=== PATIENT | female | born 1985 | race Caucasian/White ===

== ENCOUNTER 2024-05-27 09:41 | Emergency (ER) | payer OTHER, SELFPAY ==
[2024-05-27 10:12] VITALS: BP 97/73; PULSE 93; RESP 16; TEMP 36.8; O2SAT 99; BMI 21.1
--- NOTE | 2024-05-27 12:26 | ED_ITS ---
HPI - General Adult General Chief complaint: General Medical Stated complaint: seeking methadone dose Time Seen by Provider: 05/27/24 12:27 Source: patient Mode of arrival: ambulatory Limitations: no limitations History of Present Illness ED Provider: GUERITA WRIGHT PA-C HPI narrative: 38 year old female with pmhx significant for opioid use disorder on methadone presents to the ED today requesting methadone dose. Patient is typically dosed at [facility] in [place]. She recently moved to [facility] for recovery and her clinic was supposed to switch over to [facility] in [place] however they could not switch it this weekend. She received her last dose of 95 mg in [place] yesterday. She has her last dose letter with her. She denies any substance use. Denies any physical complaints at present. Denies SI/HI. Denies AH/VH/TH. Related Data Allergies Allergy/AdvReac Type Severity Reaction Status Date / Time bee pollen [bee stings] Allergy Swelling Verified 05/27/24 10:14 Review of Systems Review of Systems: Yes all other systems are reviewed and are negative [facility] Past Medical History Attestation statement: The following information was validated with the patient. Source: old records reviewed and nursing notes reviewed Physical Exam ED Vital Signs: Vital Signs - 24 hr 05/27/24 10:12 Temperature 98.3 F Pulse Rate 93 Respiratory Rate 16 Blood Pressure 97/73 Pulse Oximetry 99 Oxygen Delivery Method Room Air BMI result Body Mass Index 21.1 vital signs stable General: Well appearing, in no acute distress. Skin: Warm, dry, intact. No rashes or lesions. Head: Normocephalic, atraumatic. EENT: Hearing is intact b/l. Conjunctiva clear. PERRLA. EOM intact. Moist mucous membranes.? Neck: Supple without LAD Cardiac: Chest wall symmetric. RRR Lungs: Normal respiratory effort without accessory muscle use Abdomen: Soft, non-tender, non-distended Back: No midline spinous or paraspinal tenderness. No step off deformity. Ext: Upper and lower extremities atraumatic, without tenderness, deformity, swelling or erythema Neuro: AOx3. Normal speech. Ambulating with steady gait. Psych: Appropriate mood and affect. Responds appropriately to questions. Medical Decision Making Medical Decision Making [facility] Narrative: 38 year old female with pmhx significant for opioid use disorder on methadone presents to the ED today requesting methadone dose. Her vital signs are stable. She is nontoxic appearing in no acute distress. No signs of withdrawal. The exam is quite benign. She is ambulating with steady gait. No tremors. Differential diagnosis includes opiate use disorder, methadone dependence. Unlikely overdose, withdrawal. Patient presents with last dose letter. dated 05/26/24. Pharmacy contacted. 95 mg methadone ordered and administered. Patient tolerated well. advised to follow up with [facility] in [place] for further doses. Patient has remain ed stable throughout ED visit today. Discussed worrisome signs and symptoms and when to return to the ED. All questions answered at this time. Patient is agreeable with disposition and stable for discharge. Differential Diagnosis Differential Diagnoses: The differential diagnosis associated with the presentation includes as above. Admission/Observation not indicated. Chronic Conditions Patient?s care impacted by: Other (methadone dependence) Social Determinants Patient?s care significantly limited by Social Determinants of Health including: Other Social Determinant of Health Critical Care Time Critical Care Time Critical Care Time: No Discharge Plan Discharge Clinical Impression: Methadone dependence Patient Disposition: Home, Self-Care Instructions: Methadone (By mouth), Opioid Use Disorder (ED) Additional Instructions: You were seen in the emergency department for methadone dosing. We called and verified your last dose, which is methadone 95 mg, which was last given 05/26/24. We had given you methadone 95 mg in the department today. Please follow-up with your methadone clinic tomorrow for additional dosing. If any new or worsening symptoms occur, including but not limited to chest pain or shortness a breath, please return for re-evaluation. Print Language: Turkish
--- NOTE | 2024-05-27 12:45 | HE.PHANOTE ---
RE METHADONE VERIFICATION LAST DOSE 95 MG GIVEN 05/26/24 @ [facility]
[2024-05-27] MEDS: methADONE HCl 20 MG/2 ML ORAL.CONC 95 MG PO (12:49)
== END 2024-05-27 12:53 | disposition home or self-care (01) ==
LOC: HO.ED 12:38
PROVIDERS: Emergency Provider Emergency Medicine; PCP Physician Assistant
DX: F11.20 Opioid dependence, uncomplicated (principal); Z71.51 Drug abuse counseling and surveillance of drug abuser; Z79.899 Other long term (current) drug therapy
CPT/HCPCS: 99281; 99283

== ENCOUNTER 2024-05-28 09:22 | Emergency (ER) | payer OTHER, SELFPAY ==
[2024-05-28 09:49] VITALS: BP 109/67; PULSE 86; RESP 18; TEMP 36.8; O2SAT 98; BMI 22.1
[2024-05-28] MEDS: methADONE HCl 20 MG/2 ML ORAL.CONC 95 MG PO (10:34)
--- NOTE | 2024-05-28 10:50 | ED_ITS ---
HPI - General Adult General Chief complaint: General Medical Stated complaint: Methadone dose Time Seen by Provider: 05/28/24 10:18 Source: patient Mode of arrival: ambulatory Limitations: no limitations History of Present Illness ED Provider: Tala Dunlap APRN HPI narrative: 38-year-old female with a history of opiate use disorder presents the ER seeking her methadone dose. Patient reports that she has in the midst of switching her methadone clinic. She was last dosed here yesterday and received 95 mg. She was unable to get to a clinic today as it is the holiday. Patient has no physical complaints. No SI or HI. Related Data Home Medications ?Medication ?Instructions ?Recorded ?Confirmed methadone 10 mg/mL oral 95 mg PO DAILY 05/27/24 05/27/24 concentrate (Methadone Intensol) Allergies Allergy/AdvReac Type Severity Reaction Status Date / Time bee pollen [bee stings] Allergy Swelling Verified 05/28/24 09:51 Review of Systems Review of Systems: Yes all other systems are reviewed and are negative Constitutional: Constitutional: Reports no additional constitutional complaints, Denies body ache(s), Denies chills, Denies fever(s), Denies headache(s) and Denies weakness Eyes: Eyes: Reports no additional eye complaints and Denies change in vision ENT: Reports system reviewed and no additional complaints, except as documented, Denies dizziness, Denies headache(s), Denies nasal congestion, Denies nasal discharge and Denies neck pain Cardiovascular: Cardiovascular: Reports no additional cardiovascular complaints, Denies chest pain, Denies leg edema and Denies dyspnea Respiratory: Respiratory: Reports no additional respiratory complaints, Denies cough and Denies dyspnea Gastrointestinal: Gastrointestinal: Reports no additional gastrointestinal complaints, Denies abdominal pain, Denies diarrhea, Denies nausea and Denies vomiting Genitourinary: Genitourinary: Reports no additional female genitourinary complaints and Denies urinary incontinence Musculoskeletal: Musculoskeletal: Reports no additional musculoskeletal complaints, Denies back pain, Denies arthralgias, Denies joint swelling, Denies neck pain, Denies numbness and Denies tingling Integumentary/Breasts: Skin/Breast: Reports system reviewed and no additional complaints, except as docu and Denies rash Neurologic: Reports system reviewed and no additional complaints, except as documented, Denies Abnormal speech present, Denies dizziness, Denies headache(s), Denies numbness, Denies tingling and Denies weakness [facility] Past Medical History Attestation statement: The following information was validated with the patient. Source: old records reviewed and nursing notes reviewed Social History Social History Advance Directives: No Advance Directives Information Provided: Yes Do you have a plan to hurt others: No Plan Physical Exam ED Vital Signs: Vital Signs - 24 hr 05/28/24 09:49 05/28/24 10:58 Temperature 98.2 F 98.2 F Pulse Rate 86 86 Respiratory Rate 18 18 Blood Pressure 109/67 109/67 Pulse Oximetry 98 98 Oxygen Delivery Method Room Air Room Air BMI result Body Mass Index 22.1 Const General: cooperative, healthy appearing, comfortable and no acute distress Orientation/consciousness: patient oriented x3 Limitations: no limitations HENMT Head: Yes normal to inspection Ears: hearing grossly normal bilaterally General nose exam: Normal external nose present Face and sinus: Yes normal facial exam Mouth: Normal oral and palatal mucosa present Throat: Yes posterior oropharynx normal Eyes General: appearance normal, both eyes and all related structures Pupils: Equal, round and reactive pupils present Neck Neck: Yes normal visual inspection Chest Chest palpation & inspection: normal inspection of the chest Resp Effort & Inspection: normal respiratory effort Auscultation: clear to auscultation bilaterally Cardio Rate: regular rate Rhythm: regular rhythm Peripheral pulses: Peripheral pulses 2+ throughout GI Inspection: Yes normal to inspection Palpation (GI): Soft to palpation and nontender Auscultation: normal bowel sounds Back/Spine/Pelvis Thoracic/Lumbar Spine: thoracic and lumbar spine normal to inspection Skin General skin exam: no rashes or lesions noted Neuro General: patient oriented x3, no focal motor deficits and normal sensation to monofilament Cranial nerves: Yes Equal, round and reactive pupils present Cognition (Neuro): normal cognition Speech: No Abnormal speech present Gait exam (Neuro): Normal gait present Motor exam (neuro): 5/5 motor strength present throughout Extrem General: Yes normal to inspection Medications Administered Discontinued Medications Generic Name Dose Route Start Last Admin Trade Name Freq PRN Reason Stop Dose Admin Methadone HCl 95 mg 05/28/24 10:08 05/28/24 10:34 Methadone Hcl 20 Mg/2 Ml Oral.Conc PO 05/28/24 10:09 95 mg ONCE ONE Administration Medical Decision Making Medical Decision Making MDM Narrative: 38-year-old female with a history of opiate use disorder presents the ER seeking her methadone dose. Patient reports that she has in the midst of switching her methadone clinic. She was last dosed here yesterday and received 95 mg. She was unable to get to a clinic today as it is the holiday. Patient has no physical complaints. No SI or HI. Able to confirm last dose of methadone which she received yesterday. Will f/u with clinic outpatient Differential Diagnosis Differential Diagnoses: The differential diagnosis associated with the presentation includes OUD External Record Review External record reviewed: Outside ED record Social Determinants Patient?s care significantly limited by Social Determinants of Health including: Alcoholism and drug addiction in family Discharge Plan Discharge Clinical Impression: Medication refill Patient Disposition: Home, Self-Care Instructions: Medicine Refill (ED) Prescriptions: No Action methadone [Methadone Intensol] 10 mg/mL Concentrate 95 mg PO DAILY Interventions: ED Discharge Assessment Last Done: 05/28/24 10:58 Discharge Date/Time: 05/28/24 10:59 Print Language: Indonesian
[2024-05-28 10:58] VITALS: BP 109/67; PULSE 86; RESP 18; TEMP 36.8; O2SAT 98
== END 2024-05-28 10:59 | disposition home or self-care (01) ==
PROVIDERS: Emergency Provider Emergency Medicine; PCP Physician Assistant
DX: F11.20 Opioid dependence, uncomplicated (principal)
CPT/HCPCS: 99282; 99283

== ENCOUNTER 2024-05-29 09:09 | Emergency (ER) | payer OTHER, SELFPAY ==
[2024-05-29 09:37] VITALS: BP 139/66; PULSE 86; RESP 18; TEMP 36.4; O2SAT 100; BMI 22.1
--- NOTE | 2024-05-29 11:05 | ED_ITS ---
HPI - General Adult General Chief complaint: General Medical Stated complaint: Methadone dose Time Seen by Provider: 05/29/24 11:05 Source: patient and old records reviewed Mode of arrival: ambulatory Limitations: no limitations History of Present Illness ED Provider: Annamaria Blair PA-C HPI narrative: 38 yo female with history of opioid use disorder on methadone 95 mg daily, last drug use March 26, 2024 who presents to the ER for methadone dosing. She has gotten her dose here at [facility] ED the last 2 days. She reports waiting for her methadone clinic in [place] to send paperwork to [facility] here. She denies any opioid withdrawal symptoms. MD complaint: methadone dose Associated symptoms: denies other symptoms Treatments prior to arrival: none Related Data Home Medications ?Medication ?Instructions ?Recorded ?Confirmed methadone 10 mg/mL oral 95 mg PO DAILY 05/27/24 05/29/24 concentrate (Methadone Intensol) Allergies Allergy/AdvReac Type Severity Reaction Status Date / Time bee pollen [bee stings] Allergy Swelling Verified 05/29/24 09:39 Review of Systems Review of Systems: Yes all other systems are reviewed and are negative [facility] Social History Social History Advance Directives: No Advance Directives Information Provided: No Do you have a plan to hurt others: No Plan Physical Exam ED Vital Signs: Vital Signs - 24 hr 05/29/24 09:37 05/29/24 12:03 Temperature 97.5 F 97.5 F Pulse Rate 86 86 Respiratory Rate 18 18 Blood Pressure 139/66 139/66 Pulse Oximetry 100 100 Oxygen Delivery Method Room Air Room Air BMI result Body Mass Index 22.1 Appearance: Alert. Oriented X3. No acute distress. HEENT: normal inspection Neck: Normal inspection. Chest: normal inspection, equal chest rise Resp: speaking in complete sentenes, no distress Skin: Skin warm and dry. Normal skin color. Normal skin turgor. No rashes. Extremities: No lower extremity edema. No joint swelling. Neuro/psych: Oriented X 3. grossly normal, nonfocal Medications Administered Discontinued Medications Generic Name Dose Route Start Last Admin Trade Name Freq PRN Reason Stop Dose Admin Methadone HCl 95 mg 05/29/24 11:04 05/29/24 11:32 Methadone Hcl 20 Mg/2 Ml Oral.Conc PO 05/29/24 11:05 95 mg ONCE ONE Administration Medical Decision Making Medical Decision Making MDM Narrative: 38 yo female with history of opioid use disoder on methadone presenting for methadone dose. last dosed here yesterday and the day before. VSS. no evidence of withdrawal. Jinny Geoffrey [employer] OPER[employer] came to the ER and spoke with the patient - legally we can only provide THREE DAYS of methadone dosing and she will have to go to [facility] tomorrow for intake and dosing. she is aware of this and will go there tomorrow as a walkin. Differential Diagnosis Differential Diagnoses: The differential diagnosis associated with the presentation includes opioid use disorder on methadone, opioid withdrawal External Record Review External record reviewed: Outpatient record Prescription Management I considered prescription management with: Pain Medication Social Determinants Patient?s care significantly limited by Social Determinants of Health including: Problems related to primary support group and Other Social Determinant of Health Critical Care Time Critical Care Time Critical Care Time: No Discharge Plan Discharge Clinical Impression: Opioid use disorder Patient Disposition: Home, Self-Care Instructions: Opioid Use Disorder (ED) Additional Instructions: You were given 95 mg of methadone today, 05/29/24 at 11am You MUST follow up with the clinic tomorrow as we legally cannot provide dosing more than 3 days If you develop new or worsening symptoms call 911 or come back to the ER for further evaluation. Prescriptions: No Action methadone [Methadone Intensol] 10 mg/mL Concentrate 95 mg PO DAILY Interventions: ED Discharge Assessment Last Done: 05/29/24 12:03 Discharge Date/Time: 05/29/24 12:04 Print Language: Marshallese
--- NOTE | 2024-05-29 11:19 | HE.PHANOTE ---
METHADONE Dose: 95mg, last dosed here at [facility] on 05/27/24 and 05/28/24, last dose prior to that was 05/26/24 at [facility] per medical record notes.
[2024-05-29] MEDS: methADONE HCl 20 MG/2 ML ORAL.CONC 95 MG PO (11:32)
--- NOTE | 2024-05-29 12:01 | PC.NURSE ---
pt seem by Jinny Hale Np in exam room- pt provided with outpatient resources, pt medicated per JUL and provided with last dose letter
[2024-05-29 12:03] VITALS: BP 139/66; PULSE 86; RESP 18; TEMP 36.4; O2SAT 100
== END 2024-05-29 12:04 | disposition home or self-care (01) ==
PROVIDERS: Emergency Provider Emergency Medicine; PCP Physician Assistant
DX: F11.10 Opioid abuse, uncomplicated (principal); Z79.899 Other long term (current) drug therapy
CPT/HCPCS: 99282; 99283